=== PATIENT | female | born 1985 | race Caucasian/White ===

== ENCOUNTER 2021-01-12 17:16 | Emergency (ER) | payer OTHER ==
[~2021-01-12] VITALS: Ht 149.9 cm; Wt 61.2 kg
[2021-01-12] MEDS ORDERED: CASIRIVIMAB/IMDEVIMAB 10 ML in SODIUM CHLORIDE 0.9% 100 ML IV ONE (17:30)
[2021-01-12] MEDS ORDERED: SODIUM CHLORIDE 0.9% 100 ML ONE (17:34)
== END 2021-01-12 18:20 | disposition home or self-care (01) ==
LOC: ER 17:19
DX: U07.1 COVID-19 (principal); R05.9 Cough, unspecified
CPT/HCPCS: 99283; J7050